=== PATIENT | female | born 1945 | race Caucasian/White ===

== ENCOUNTER 2017-11-15 14:56 | Emergency (ER) | payer MEDICARE, OTHER ==
[~2017-11-15] VITALS: Ht 165.1 cm; Wt 55.8 kg
--- NOTE | 2017-11-15 15:51 | EKG ---
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
[2017-11-15 15:54] LABS: BASO # 0.1 x10^3/uL (0.0-0.2); BASO % 1 % (0-3); EOS # 0.2 x10^3/uL (0.0-0.7); EOS % 3 % (0-3); HEMOGLOBIN 11.6 g/dL (12.0-15.5); LYMPH # 2.1 x10^3/uL (1.0-4.8); LYMPH % 30 % (24-48); MEAN CORPUSCULAR HEMOGLOBIN 32 pg (25-35); MEAN CORPUSCULAR HGB CONC 33 g/dL (31-37); MEAN CORPUSCULAR VOLUME 96 fL (79-100); MONO # 0.5 x10^3/uL (0.0-1.1); MONO % 7 % (0-9); NEUT # 3.9 x10^3uL (1.8-7.7); NEUT % 58 % (31-73); PLATELET COUNT 265 x10^3/uL (140-400); RED BLOOD COUNT 3.64 x10^6/uL (3.50-5.40); RED CELL DISTRIBUTION WIDTH 13.3 % (11.5-14.5); WHITE BLOOD COUNT 6.8 x10^3/uL (4.0-11.0)
[2017-11-15 16:03] LABS: CALCIUM 9.4 mg/dL (8.5-10.1); GFR 54.2; POTASSIUM 3.8 mmol/L (3.5-5.1)
[2017-11-15 16:56] VITALS: BP 132/69
--- NOTE | 2017-11-16 06:50 | ED.ADGEN ---
Past History Past Medical History: Hypertension Past Surgical History: No Surgical History Alcohol Use: None Drug Use: None Adult General HPI HPI Patient is a 72 year old female who presents with nausea. The patient has a prior history of high blood pressure. She takes Norvasc, Coreg, and lisinopril for blood pressure. She had not been taking her medication as directed. Earlier today, she checked her blood pressure and noted that it was 180 systolic. At that time, she took all 3 of her medications at once. She then went out to eat with her family. Part way through her meal, she had an episode where she felt nauseated and broke out in a sweat. She was sitting down at the time. The episode lasted about 10 minutes. She did not actually vomit. She did not have palpitations or chest pain or shortness of breath. Following the meal, she came to the emergency department to make sure everything was okay. At the time of this interview, she has no symptoms. Review of Systems Review of Systems Constitutional: Denies fever or chills Eyes: Denies change in visual acuity HENT: Denies nasal congestion or sore throat Respiratory: Denies cough or shortness of breath Cardiovascular: No additional information not addressed in HPI GI: Denies abdominal pain : Denies dysuria or hematuria Musculoskeletal: Denies back pain or joint pain Integument: Denies rash or skin lesions Neurologic: Denies headache, focal weakness Endocrine: Denies polyuria or polydipsia All other systems were reviewed and found to be within normal limits, except as documented in this note. Allergies Allergies Allergies Coded Allergies Type Severity Reaction Last Updated Verified Penicillins Allergy Intermediate 11/15/17 Yes Physical Exam Physical Exam Constitutional: Well developed, well nourished, no acute distress, non-toxic appearance. HENT: Normocephalic, atraumatic, bilateral external ears normal, oropharynx moist Eyes: PERRLA, EOMI, conjunctiva normal, no discharge Neck: Normal range of motion, no tenderness Cardiovascular:Heart rate regular rhythm Lungs & Thorax: Bilateral breath sounds clear to auscultation Abdomen: Bowel sounds normal, soft, no tenderness Skin: Warm, dry, no erythema, no rash Extremities: No edema Neurologic: Alert and oriented X 3 Psychologic: Affect normal Current Patient Data Vital Signs Vital Signs Date Time Temp Pulse Resp B/P (MAP) Pulse Ox O2 Delivery O2 Flow Rate FiO2 11/15/17 16:56 70 18 132/69 (90) 98 Room Air 11/15/17 15:06 98.2 Lab Results Laboratory Tests Test 11/15/17 15:34 White Blood Count 6.8 x10^3/uL (4.0-11.0) Red Blood Count 3.64 x10^6/uL (3.50-5.40) Hemoglobin 11.6 g/dL (12.0-15.5) L Hematocrit 35.0 % (36.0-47.0) L Mean Corpuscular Volume 96 fL (79-100) Mean Corpuscular Hemoglobin 32 pg (25-35) Mean Corpuscular Hemoglobin Concent 33 g/dL (31-37) Red Cell Distribution Width 13.3 % (11.5-14.5) Platelet Count 265 x10^3/uL (140-400) Neutrophils (%) (Auto) 58 % (31-73) Lymphocytes (%) (Auto) 30 % (24-48) Monocytes (%) (Auto) 7 % (0-9) Eosinophils (%) (Auto) 3 % (0-3) Basophils (%) (Auto) 1 % (0-3) Neutrophils # (Auto) 3.9 x10^3uL (1.8-7.7) Lymphocytes # (Auto) 2.1 x10^3/uL (1.0-4.8) Monocytes # (Auto) 0.5 x10^3/uL (0.0-1.1) Eosinophils # (Auto) 0.2 x10^3/uL (0.0-0.7) Basophils # (Auto) 0.1 x10^3/uL (0.0-0.2) D-Dimer (Anju) 0.78 mg/L (0.00-0.50) H Sodium Level 140 mmol/L (136-145) Potassium Level 3.8 mmol/L (3.5-5.1) Chloride Level 106 mmol/L (98-107) Carbon Dioxide Level 32 mmol/L (21-32) Anion Gap 2 (6-14) L Blood Urea Nitrogen 12 mg/dL (7-20) Creatinine 1.0 mg/dL (0.6-1.0) Estimated GFR (Cockcroft-Gault) 54.2 Glucose Level 125 mg/dL (70-99) H Calcium Level 9.4 mg/dL (8.5-10.1) Troponin I Quantitative 0.043 ng/mL (0-0.055) EKG EKG [] Radiology/Procedures Radiology/Procedures [] Course & Med Decision Making Course & Med Decision Making Pertinent Labs and Imaging studies reviewed. (See chart for details) Patient was seen and examined in the emergency department. She had no complaints at the time of the exam. Her physical examination was normal. The patient did give some history previously of some sort of blockage in her chest but she cannot be more specific if it was a coronary artery or aorta or carotid artery. The patient did not know. She was also noted on her physical exam to have diminished radial pulse on the left compared to the right. Records were requested from [facility] where the patient underwent imaging previously. The records were received. 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 The left upper extremity was warm with sensation to light touch intact. There was palpable radial pulse, it was just less compared to the right. In the ER today, patient had basic labs and troponin. There were no acute findings. Her EKG was normal. Patient was discharged to home. The patient does continue to smoke 1 pack per day. I talked to her about smoking cessation. The patient is not ready at this time. She is encouraged however to follow-up with her primary care doctor and consider this. All her questions are answered prior to discharge and she is agreeable to the plan of care. Final Impression Final Impression Nausea Dragon Disclaimer Nabeelon Disclaimer This electronic medical record was generated, in whole or in part, using a voice recognition dictation system. YOCASTA KOWALSKI DO Nov 16, 2017 06:50
== END 2017-11-15 16:57 | disposition home or self-care (01) ==
LOC: ER 14:56
DX: R11.0 Nausea (principal); I10 Essential (primary) hypertension; Z88.0 Allergy status to penicillin
CPT/HCPCS: 36415; 80048; 84484; 85025; 85379; 93005; 99285-25

== ENCOUNTER 2018-06-06 22:11 | Emergency (ER) | payer MEDICARE, OTHER ==
[~2018-06-06] VITALS: Ht 165.1 cm; Wt 56.7 kg
--- NOTE | 2018-06-06 22:47 | PHYS DOC ---
Past History Past Medical History: Hypertension Past Surgical History: No Surgical History Alcohol Use: None Drug Use: None Adult General Chief Complaint Chief Complaint: CHEST PAIN HPI HPI 72-year-old female presents with chest pain. The patient has been having intermittent chest discomfort for the last 3 weeks. She has episodes where it feels like gas pain in her upper abdomen and she gets diaphoretic. These episodes can happen 2 or 3 times a day. Today she had an episode that was worse than others started at 2100. She was diaphoretic and mildly short of breath. She denies nausea or vomiting. She states that the pain is mild and does not give it a number. After she belches a couple times she feels better. On arrival , she states the pain is improved, but not gone. She denies fever or chills. She has had recent changes to her medications. She is no longer taking a baby aspirin and she is not currently taking amlodipine and carvedilol as she was told to hold these for now. Review of Systems Review of Systems Constitutional: Denies fever or chills [] Eyes: Denies change in visual acuity, redness, or eye pain [] HENT: Denies nasal congestion or sore throat [] Respiratory: Mild shortness of breath [] Cardiovascular: No additional information not addressed in HPI [] GI: Denies abdominal pain, nausea, vomiting, bloody stools or diarrhea [] : Denies dysuria or hematuria [] Musculoskeletal: Denies back pain or joint pain [] Integument: Denies rash or skin lesions [] Neurologic: Denies headache, focal weakness or sensory changes [] Endocrine: Denies polyuria or polydipsia [] All other systems were reviewed and found to be within normal limits, except as documented in this note. Current Medications Current Medications Current Medications Medications (Trade) Dose Ordered Sig/Sean Start Time Stop Time Status Last Admin Dose Admin Aspirin (Children'S Aspirin) 324 mg 1X ONCE 06/06/18 22:30 06/06/18 22:31 DC Allergies Allergies Allergies Coded Allergies Type Severity Reaction Last Updated Verified Penicillins Allergy Intermediate 11/15/17 Yes Physical Exam Physical Exam Constitutional: Well developed, well nourished, no acute distress, non-toxic appearance. [] HENT: Normocephalic, atraumatic, bilateral external ears normal, oropharynx moist, no oral exudates, nose normal. [] Eyes: PERRLA, EOMI, conjunctiva normal, no discharge. [] Neck: Normal range of motion, no tenderness, supple, no stridor. [] Cardiovascular:Heart rate regular rhythm, no murmur [] Lungs & Thorax: Bilateral breath sounds clear to auscultation [] Abdomen: Bowel sounds normal, soft, no tenderness, no masses, no pulsatile masses. [] Skin: Warm, pale, dry, no erythema, no rash. [] Back: No tenderness, no CVA tenderness. [] Extremities: No tenderness, no cyanosis, no clubbing, ROM intact, no edema. [] Neurologic: Alert and oriented X 3, normal motor function, normal sensory function, no focal deficits noted. [] Psychologic: Affect normal, judgement normal, mood normal. [] Current Patient Data Vital Signs Vital Signs Date Time Temp Pulse Resp B/P (MAP) Pulse Ox O2 Delivery O2 Flow Rate FiO2 06/06/18 22:23 98.2 94 16 98 Room Air EKG EKG Sinus rhythm, rate 97, left axis, ST depressions in lead 1, 2, aVF, V3 through V6, ST elevation in V1[] Radiology/Procedures Radiology/Procedures [] Impressions: Preliminary interpretation: No acute findings. Course & Med Decision Making Course & Med Decision Making Pertinent Labs and Imaging studies reviewed. (See chart for details) The patient's labs are significant for an elevated troponin of 0.083. She has EKG changes with ST depressions compared to EKG of November 15, 2017. Her chest x- rays negative for acute findings. I discussed the case with the dry room operator, Dr. Humphreys and he has requested the patient be transferred to [facility] for possible Angiocath tomorrow. I discussed the patient with Dr. Ribera and he has accepted the patient for admission to telemetry at [facility]. The patient is reluctantly in agreement with this plan. She'll be transferred by ambulance. We have started heparin drip prior to departure. [] Dragon Disclaimer Dragon Disclaimer This electronic medical record was generated, in whole or in part, using a voice recognition dictation system. Departure Departure: Impression: Primary Impression: Chest pain Additional Impressions: Acute electrocardiogram changes Elevated troponin Disposition: XF SHT-TRM HOSP Condition: GUARDED Referrals: JUANA HEARN MD (PCP) Problem Qualifiers Primary Impression: Chest pain Chest pain type: chest pain due to myocardial ischemia Ischemic chest pain type: unspecified angina pectoris type Qualified Codes: I25.9 - Chronic ischemic heart disease, unspecified HAIM ALAMO DO Jun 06, 2018 22:47
[2018-06-06 22:52] LABS: BASO # 0.1 x10^3/uL (0.0-0.2); BASO % 1 % (0-3); EOS # 0.3 x10^3/uL (0.0-0.7); EOS % 3 % (0-3); HEMATOCRIT 38.9 % (36.0-47.0); HEMOGLOBIN 12.6 g/dL (12.0-15.5); LYMPH % 33 % (24-48); MEAN CORPUSCULAR HEMOGLOBIN 31 pg (25-35); MEAN CORPUSCULAR HGB CONC 33 g/dL (31-37); MEAN CORPUSCULAR VOLUME 96 fL (79-100); MONO # 0.8 x10^3/uL (0.0-1.1); MONO % 9 % (0-9); NEUT # 4.8 x10^3uL (1.8-7.7); NEUT % 54 % (31-73); PLATELET COUNT 251 x10^3/uL (140-400); RED BLOOD COUNT 4.04 x10^6/uL (3.50-5.40); WHITE BLOOD COUNT 8.9 x10^3/uL (4.0-11.0)
[2018-06-06] MEDS: ASPIRIN 81 MG TAB.CHEW PO ONE (22:53)
[2018-06-06 23:10] LABS: ALBUMIN 3.6 g/dL (3.4-5.0); ALBUMIN/GLOBULIN RATIO 1.1 (1.0-1.7); CALCIUM 9.2 mg/dL (8.5-10.1); CREATININE 0.9 mg/dL (0.6-1.0); GFR 61.2; POTASSIUM 3.9 mmol/L (3.5-5.1); TOTAL BILIRUBIN 0.3 mg/dL (0.2-1.0); TOTAL PROTEIN 6.9 g/dL (6.4-8.2)
[2018-06-06] MEDS: NITROGLYCERIN SUBLINGUAL 0.4 MG BOTTLE OF 25. SL ONE (23:29)
[2018-06-06] MEDS ORDERED: HEPARIN 25,000UTS/500ML PREMIX 500 ML IV PRN (23:45)
[2018-06-06] MEDS ORDERED: HEPARIN for IV BOLUS 10,000 UNIT/10 ML VIAL. IV PRN ×2 (23:45)
[2018-06-06] MEDS ORDERED: ATOR40TA59 PO (23:50)
[2018-06-06] MEDS ORDERED: LISI-334 PO (23:50)
[2018-06-07] MEDS: HEPARIN for IV BOLUS 10,000 UNIT/10 ML VIAL. IV ONE (00:09)
[2018-06-07] MEDS: HEPARIN 25,000UTS/500ML PREMIX 500 ML IV PRN (00:14)
[2018-06-07] MEDS: NITROGLYCERIN SUBLINGUAL 0.4 MG BOTTLE OF 25. SL ONE (00:39)
[2018-06-07 00:44] VITALS: BP 170/90
--- NOTE | 2018-06-07 02:58 | RAD ---
AP chest x-ray HISTORY: Chest pain. FINDINGS: Heart size normal. Mild tortuosity and calcified plaque of the thoracic aorta. Small calcified granuloma right lung base. No pneumothorax, pulmonary opacities or pleural effusions. The bones are unremarkable. IMPRESSION: No acute process. Electronically signed by: Varghese Graham MD (06/07/2018 2:54 AM) [id number]
--- NOTE | 2018-06-08 08:42 | EKG ---
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
--- NOTE | 2018-06-08 08:49 | EKG ---
[address] [address] Test Date: 2018-06-07 Test Time: 00:42:01 Pat Name: RUDDY CARDOZO Department: Room: Gender: F Medical Transcription Radiology: ANNEMARIE : 1945 Requested By: HAIM ALAMO Order Number: [id number] Reading MD: Ramiro Lechuga Measurements Intervals [place] Rate: 85 P: 19 [place]: 166 QRS: -28 QRSD: 90 T: 114 QT: 372 QTc: 443 Interpretive Statements SINUS RHYTHM LEFT ATRIAL ABNORMALITY LEFTWARD AXIS CONSIDER LEFT VENTRICULAR HYPERTROPHY ST & T ABNORMALITY, CONSIDER HIGH LATERAL ISCHEMIA OR LEFT VENTRICULAR STRAIN ABNORMAL ECG Electronically Signed On 06-10-2018 10:04:18 PLAYGROUND EQUIPMENT ERECTOR by Ramiro Lechuga
== END 2018-06-07 00:57 | disposition short-term general hospital (02) ==
LOC: ER 22:11
DX: I25.9 Chronic ischemic heart disease, unspecified (principal); R94.31 Abnormal electrocardiogram [ECG] [EKG]; R79.89 Other specified abnormal findings of blood chemistry; I10 Essential (primary) hypertension; Z88.0 Allergy status to penicillin
CPT/HCPCS: 36415; 71045; 80053; 83880; 84484; 85025; 85610; 85730; 93005; 96365; 96376; 99285; J1644